=== PATIENT | male | born 1970 | race Caucasian/White ===

== ENCOUNTER 2017-02-10 00:13 | Emergency (ER) | payer OTHER, MEDICAID ==
[~2017-02-10 00:13] MED LIST: ATROVENT H0.017 MG/1; MIRTAZAPINE15 M2; MIRTAZAPINE30 M2 PO; NAPROSYN375 MG; RISPERIDONE2 M1 PO; SOMA350 MG; TRAZODONE50 M1
[2017-02-10 01:30] LABS: PLATELET COUNT 214 x10^3mcL (130-400); RED CELL DISTRIBUTION WIDTH 13.8 % (11.5-14.5)
[2017-02-10 01:32] LABS: BASOPHIL % 2.6 % (0-2)
[2017-02-10 01:45] LABS: CALCIUM 8.8 mg/dL (8.5-10.1); CARBON DIOXIDE 29.4 mmol/L (21-32); CHLORIDE SERUM 104 mmol/L (98-107); CREATININE SERUM 1.2 mg/dL (0.7-1.3); GFR1 > 60 mL/min; GLUCOSE SERUM 125 mg/dL (74-106); SODIUM SERUM 140 mmol/L (136-145)
[2017-02-10 01:50] LABS: ALBUMIN 3.6 g/dL (3.4-5.0); ALKALINE PHOSPHATASE 85 U/L (46-116); ALT/SGPT 32 U/L (16-63); AST/SGOT 18 U/L (15-37); BILIRUBIN TOTAL 0.29 mg/dL (0.20-1.00); TOTAL PROTEIN, SERUM 6.7 g/dL (6.4-8.2)
[2017-02-10 02:25] LABS: AMPHETAMINE QUAL UR NONE DETECTED (NEG <=1000)
[2017-02-10 06:37] VITALS: BP 125/78
== END 2017-02-10 06:38 | disposition home or self-care (01) ==
LOC: ED 00:13
PROVIDERS: Emergency Medicine
DX: R45.851 Suicidal ideations (principal); F31.9 Bipolar disorder, unspecified; F20.9 Schizophrenia, unspecified; F41.9 Anxiety disorder, unspecified; M41.9 Scoliosis, unspecified; Z88.8 Allergy status to other drugs, medicaments and biological substances
CPT/HCPCS: 80307; G0480